=== PATIENT | female | born 1970 | race Caucasian/White ===

== ENCOUNTER 2021-09-30 03:59 | Day surgery (SDC) | payer MEDICAID ==
[2021-09-30] MEDS ORDERED: diphenhydrAMINE 25 MG/10 ML UDC PO ONE (04:00)
[2021-09-30] MEDS ORDERED: ASPIRIN 81 MG TAB.CHEW PO ONE (04:00)
[2021-09-30] MEDS ORDERED: ASPIRIN 81 MG TAB.CHEW PO SCH (09:00)
== END 2021-09-30 08:35 ==
LOC: DS 03:59
PROVIDERS: ATTEND Internal Medicine
PROC: 0PST04Z Reposition Right Finger Phalanx with Internal Fixation Device, Open Approach (ICD-10-PCS; principal; 2021-09-30)
DX: S62.626A Displaced fracture of middle phalanx of right little finger, initial encounter for closed fracture (principal); V78.1XXA Passenger on bus injured in noncollision transport accident in nontraffic accident, initial encounter; Y93.89 Activity, other specified; Y92.488 Other paved roadways as the place of occurrence of the external cause
CPT/HCPCS: 36415; 85610; Q0163